=== PATIENT | female | born 1985 | race Caucasian/White ===

== ENCOUNTER 2021-04-15 13:37 | Emergency (ER) | payer OTHER, SELFPAY ==
[2021-04-15 14:00] VITALS: BP 129/76; PULSE 80; RESP 18; TEMP 37.1; O2SAT 99
--- NOTE | 2021-04-15 14:14 | ED.GENADULT ---
HPI - General Adult General Chief complaint: Skin/Abscess/Foreign Body Stated complaint: Hives Time Seen by Provider: 04/15/21 14:14 Source: patient Mode of arrival: ambulatory Limitations: no limitations History of Present Illness HPI narrative: 35-year-old female patient presents to the [facility] with complaints of a rash that started yesterday. Patient states she felt a little itchy yesterday and woke up all night with her son fell out of bed and states she noticed that she was feeling more itchy all over her body. Patient states she has taken some Benadryl today she noticed that the rash was worse and specifically around her groin area and her waist. Patient states she took more Benadryl as well as the famotidine and states the rash is much better now. Denies any new soaps lotions or detergents. Denies any chest pain or shortness of breath. Denies any trouble swallowing or pain to the throat. Related Data Home Medications Medication Instructions Recorded Confirmed cetirizine [Zyrtec] 10 mg PO DAILY PRN 04/15/21 04/15/21 Allergies Allergy/AdvReac Type Severity Reaction Status Date / Time codeine Allergy Joint Pain Verified 04/15/21 14:16 Review of Systems Review of Systems: CONSTITUTIONAL: Denies fever, chills, or sweats. EYES: Denies visual changes, redness, or discharge. ENT: Denies rhinorrhea, congestion, sore throat, or otalgia. CARDIOVASCULAR: Denies chest pain, palpitations, or edema. RESPIRATORY: Denies cough or dyspnea. GASTROINTESTINAL: Denies abdominal pain, nausea, vomiting, or diarrhea. GENITOURINARY: Denies dysuria or hematuria. SKIN: Positive rash with itching since yesterday MUSCULOSKELETAL: Denies back pain, joint pain, or myalgia. NEUROLOGIC: Denies headache, numbness, or weakness. PSYCHIATRIC: Denies anxiety or depression. [facility] Past Medical History Medical History (Updated 04/15/21 @ 14:25 by ZBGINIEW Mock) No significant past medical history Comments At the time of my signature I agree with nursing past medical history, surgical, social, and family history. There is no relevant family history pertinent to the presenting complaint. Exam Narrative: GENERAL: Well-appearing, well-nourished, and in no acute distress. HEAD: Normocephalic, atraumatic. EYES: PERRLA and EOMI. ENT: Nares clear, no rhinorrhea or epistaxis. Mucous membranes moist. NECK: Supple. No lymphadenopathy. No stridor. CHEST: Clear to auscultation. No respiratory distress. HEART: Regular rate and rhythm. No murmur heard. Normal peripheral pulses. ABDOMEN: Soft, nontender, nondistended, normal active bowel sounds. EXTREMITIES: Normal range of motion. No edema. SKIN: Warm, dry, patient has generalized rash noted to bilateral upper extremities, lower abdomen, waist, groin area of irregular size erythemic lesions and wheals that are itchy. No open wounds or drainage noted. NEURO: No focal deficits. Alert and oriented x3. Course Vital Signs Vital signs: Vital Signs Temperature 37.1 C 04/15/21 14:00 Pulse Rate 80 04/15/21 14:00 Respiratory Rate 18 04/15/21 14:00 Blood Pressure 129/76 04/15/21 14:00 Pulse Oximetry 99 04/15/21 14:00 Temperature 37.1 C 04/15/21 14:00 Pulse Rate 80 04/15/21 14:00 Respiratory Rate 18 04/15/21 14:00 Blood Pressure 129/76 04/15/21 14:00 Pulse Oximetry 99 04/15/21 14:00 Vital signs reviewed Medical Decision Making Differential Diagnosis Differential Diagnosis: Differential diagnosis: Contact dermatitis, poison tanya, poison sumac, psoriasis, eczema, allergic reaction, drug reaction, scabies, tinea syphilis, lung disease, viral exanthema, pityriasis, erythema multiforme. Discussed with patient that it does appear that she is got some hives. Does appear that they are getting better since she is taking the Benadryl as well as the Pepcid. Encourage patient to get Kavitha and take a double dose of Kavitha twice a day until her hives have completely gone.
== END 2021-04-15 14:26 | disposition home or self-care (01) ==
PROVIDERS: Emergency Provider Nurse Practitioner Family
DX: L50.9 Urticaria, unspecified (principal)
CPT/HCPCS: 99202; G0463